=== PATIENT | male | born 1990 | race Asian ===

== ENCOUNTER 2023-05-21 18:56 | Emergency (ER) | payer OTHER ==
[~2023-05-21] VITALS: Ht 170.2 cm; Wt 72.0 kg
[2023-05-21 19:07] VITALS: TEMP 98
[2023-05-21] MEDS: LIDOCAINE 2% VISCOUS 15 ML SOLUTION UDCUP PO ONE (19:17)
[2023-05-21] MEDS: MINERAL OIL 90 ML BOTTLE TP ONE (19:17)
[2023-05-21] MEDS ORDERED: CEPH-558 PO (20:26)
[2023-05-21] MEDS ORDERED: IBUP-1492 PO (20:26)
[2023-05-21] MEDS: IBUPROFEN 600 MG TABLET PO ONE (20:39)
[2023-05-21] MEDS: CEPHALEXIN MONOHYDRATE 500 MG CAPSULE PO ONE (20:39)
[2023-05-21] MEDS: HYDROCODONE/ACETAMINOPHEN 5-325 MG TABLET PO ONE (20:39)
[2023-05-21 20:42] VITALS: BP 148/86; PULSE 97; RESP 17
== END 2023-05-21 20:46 | disposition home or self-care (01) ==
LOC: EMS 19:00
DX: T16.2XXA Foreign body in left ear, initial encounter (principal); W44.F4XA Insect entering into or through a natural orifice, initial encounter; Y93.89 Activity, other specified; Y92.89 Other specified places as the place of occurrence of the external cause; Y99.8 Other external cause status
CPT/HCPCS: 69200; 99284; Z7502; Z7610